=== PATIENT | male | born 1995 | race African-American/Black ===

== ENCOUNTER 2022-10-11 23:46 | Emergency (ER) | payer MEDICAID ==
[~2022-10-11] VITALS: Ht 170.2 cm; Wt 75.0 kg
[2022-10-12 00:44] VITALS: TEMP 97.9
[2022-10-12] MEDS ORDERED: CLOT15CR23 TP (02:40)
[2022-10-12] MEDS ORDERED: CEPH-558 PO (02:40)
[2022-10-12] MEDS ORDERED: BACITRACIN 0.9 GM PACKET OINTMENT TP ONE (02:45)
[2022-10-12 04:00] VITALS: BP 135/68; PULSE 88; RESP 17
== END 2022-10-12 04:22 | disposition home or self-care (01) ==
LOC: EDBD 23:48 → EMS 23:48
DX: S90.811A Abrasion, right foot, initial encounter (principal); B35.1 Tinea unguium; F20.9 Schizophrenia, unspecified; F17.210 Nicotine dependence, cigarettes, uncomplicated; Z59.00 Homelessness unspecified; X58.XXXA Exposure to other specified factors, initial encounter; Y93.89 Activity, other specified; Y92.89 Other specified places as the place of occurrence of the external cause; Y99.8 Other external cause status
CPT/HCPCS: 99283